=== PATIENT | male | born 1990 | race Caucasian/White ===

== ENCOUNTER 2018-12-01 19:05 | Emergency (ER) | payer BC ==
[2018-12-01 19:43] VITALS: BP 146/78; TEMP 98.1; O2SAT 98
--- NOTE | 2018-12-01 19:46 | ED.PDOC ---
History of Present Illness - General Chief Complaint: Behavioral / Psych Stated Complaint: anxiety, depression Time Seen by Provider: 12/01/18 19:29 Source: patient Exam Limitations: no limitations - History of Present Illness Initial Comments: HE SUFFERS OF UNTREATED DEPRESSION AND RECENTLY HAD AN EXTRAMARITAL SEXUAL ENCOUNTER AND HE IS HERE BECASUE HE WANTS TO BE TESTED FOT STD AND HIV. SINCE THE ENCOUNTER ABOUT ONE WEEK AGO HE IS ASYMPTOMATIC OTHER THAN HIS DEPRESSION SEEMS TO BE WORSENING. DENIES ANY PENILE OR RECTAL PAIN OR DISCHARGE, Timing/Duration: 1 week Severity: moderate Improving Factors: nothing Worsening Factors: nothing Associated Symptoms: denies symptoms Allergies/Adverse Reactions: Allergies Ethanol [From Robitussin] Allergy (Verified 12/01/18 19:44) Hives Guaifenesin [From Robitussin] Allergy (Verified 12/01/18 19:44) Hives Home Medications: Ambulatory Orders Zyrtec 10 mg PO DAILY 12/01/18 Review of Systems - Review of Systems Constitutional: States: no symptoms reported EENTM: States: no symptoms reported Respiratory: States: no symptoms reported Cardiology: States: no symptoms reported Gastrointestinal/Abdominal: States: no symptoms reported Genitourinary: States: no symptoms reported Musculoskeletal: States: no symptoms reported Skin: States: no symptoms reported Neurological: States: anxiety, depressed Endocrine: States: no symptoms reported Past Medical History (General) - Patient Medical History Hx Seizures: No Hx Stroke: No Hx Dementia: No Hx Asthma: No Hx of COPD: No Hx Cardiac Disorders: No Hx Congestive Heart Failure: No Hx Pacemaker: No Hx Hypertension: No Hx Thyroid Disease: No Hx Diabetes: No Hx Gastroesophageal Reflux: No Hx Renal Disease: No Hx Cancer: No Hx of HIV: No Hx Hepatitis C: No Hx MRSA: No Surgical History: no surgical history - Vaccination History Hx Tetanus, Diphtheria Vaccination: No Hx Influenza Vaccination: No - Social History Hx Tobacco Use: Yes Hx Alcohol Use: No Hx Depression: Yes Family Medical History - Family History Mother Living Status: Still Living Physical Exam - Physical Exam General Appearance: Alert, Anxious Eye Exam: bilateral normal, bilateral abnormal EOM Ears, Nose, Throat: hearing grossly normal, normal ENT inspection Neck: non-tender, full range of motion, supple Respiratory: chest non-tender, lungs clear, normal breath sounds, no respiratory distress, no accessory muscle use Cardiovascular/Chest: normal peripheral pulses, regular rate, rhythm, no edema, no gallop, no JVD Peripheral Pulses: radial,right: 2+, radial,left: 2+ Gastrointestinal/Abdominal: normal bowel sounds, non tender, soft, no organomegaly, no pulsatile mass Rectal Exam: deferred Back Exam: normal inspection Progress - Results/Orders Results/Orders: THE LABS ARE SEND OUTS. WE WILL COMMUNICATE TO THE PATIENT RESULTS. Departure - Departure Clinical Impression: Depression Qualifiers: Depression Type: reactive depression Qualified Code(s): F32.9 - Major depressive disorder, single episode, unspecified Disposition: Discharge to Home or Self Care Condition: Good Departure Forms: ED Discharge - Pt. Copy, Patient Portal Self Enrollment Instructions: Depression, Adult (DC) Diet: resume usual diet Referrals: Will Sebastian MD [Primary Care Provider] - 1-2 Weeks Home Medications: Ambulatory Orders Zyrtec 10 mg PO DAILY 12/01/18 Additional Instructions: THE HOSPITAL WILL NOTIFY OF RESULTS
== END 2018-12-01 20:02 | disposition home or self-care (01) ==
LOC: ER 19:05
DX: F32.9 Major depressive disorder, single episode, unspecified (principal); Z11.3 Encounter for screening for infections with a predominantly sexual mode of transmission; Z88.8 Allergy status to other drugs, medicaments and biological substances

== ENCOUNTER → 2019-09-26 | Outpatient (CLI) | payer BC | LOC: LAB.O 10:14 | PROVIDERS: ATTEND Family Medicine | DX: K76.0 Fatty (change of) liver, not elsewhere classified (principal) ==

== ENCOUNTER → 2020-07-28 | Outpatient (CLI) | payer BC ==
--- NOTE | 2020-07-28 14:19 | RAD ---
EXAM DESCRIPTION: Chest,1 View CLINICAL HISTORY: 30 years Male, CHEST PAIN COMPARISON: None. FINDINGS: One view/radiograph Heart size and pulmonary vessels are within normal limits. There is no pneumothorax or pleural effusion. The lungs are clear bilaterally. The soft tissues are unremarkable. No acute osseous findings. IMPRESSION: No acute cardiopulmonary abnormality. Electronically signed by: Ronnie Clemons MD 07/28/2020 2:18 PM CDT
== END ==
LOC: YCFC.O 13:39
PROVIDERS: ATTEND Family Medicine
DX: R07.9 Chest pain, unspecified (principal)